=== PATIENT | female | born 1960 | race Caucasian/White ===

== ENCOUNTER → 2021-06-24 | Outpatient (CLI) | payer OTHER ==
[2021-06-24 14:26] VITALS: BP 141/102; PULSE 114; RESP 18; TEMP 99.1; BMI 27.1
--- NOTE | 2021-07-22 17:00 | P.HPBAR ---
Bariatric H&P - History & Physicial H&P Date: 06/24/21 History & Physicial: Visit/CC: initial / lap band Patient initial contact: Initial weight: Initial weight in pounds: Height: 5 ft 7 in Initial BMI: Last weight: Current weight: 78.471 kg Current weight in pounds: 173.00 Current BMI: 27.1 [place] body weight (based on NIH guidelines): 61.235 kg Excess body weight loss: The patient is a 61 year-old F who presents for Bariatric Assessment. Patient presents today for LAP-BAND adjustment. She currently feels full is requesting fluid removed from her band. Past Medical History Past Medical History: GERD/Reflux History of Any Multi-Drug Resistant Organisms: None Reported Past Surgical History: Bariatric Surgery Additional Past Surgical History / Comment(s): lap band 2006 Past Anesthesia/Blood Transfusion Reactions: No Reported Reaction Smoking Status: Never smoker Surgical - Exam Vital Signs Temp Pulse Resp BP 99.1 F 114 H 18 141/102 06/24/21 14:19 06/24/21 14:19 06/24/21 14:19 06/24/21 14:19 - General well developed, well nourished, no distress - Eyes PERRL - ENT normal pinna - Neck no masses - Respiratory normal expansion - Cardiovascular Rhythm: regular - Abdomen Abdomen: soft, non tender Bariatric Assessment & Plan Plan: Patient's LAP-BAND was adjusted. She had 3.5 mL refer band. She was able require without difficulty. She'll follow-up in 4 weeks. Bariatric Checklist Checklist: Plan: Checklist: EGD: 1. Hiatal hernia: 2. H. Pylori: HgbA1c: Vitamin D: Smoking: Primary care physician referral: Psychiatry clearance: Cardiology clearance: Sleep study: Diet journal: VTE risk score: VTE risk level: Rehab needs at discharge:
== END ==
LOC: BARWHC3 11:35 → MERGE 14:00
PROVIDERS: ATTEND Surgery
DX: Z46.51 Encounter for fitting and adjustment of gastric lap band (principal); Z98.84 Bariatric surgery status
CPT/HCPCS: 99202